=== PATIENT | female | born 1960 | race American Indian/Alaskan Native ===

== ENCOUNTER 2016-12-06 11:47 | Emergency (ER) | payer MEDICAID ==
[2016-12-06 12:00] VITALS: RESP 18
[2016-12-06] MEDS ORDERED: CYCLOBENZAPRINE 10 MG TAB PO ONE (12:15)
[2016-12-06] MEDS ORDERED: KETOROLAC 30 MG/1 ML SDV IM ONE (12:15)
--- NOTE | 2016-12-06 12:22 | EDPHY ---
H & P Time Seen by Provider: 12/06/16 11:51 HPI/ROS: HPI Rib pain, mechanical fall. 56-year-old female by private vehicle with her . She reports that last night at 2:30 a.m. she woke to go to the bathroom. She had walked down 16 stairs. As she was walking down the stairs her feet slipped out from underneath her. She landed on her right posterior lateral rib cage. Catching the edge of 1 of the steps to this area. She also reports that she hit the back of her head. She denies any loss of consciousness. She is not on any anticoagulation medication. She does have a history of recent back surgery as well as chronic pain and chronic use of narcotic pain medications. She has had no nausea or vomiting. No confusion. She complains of pain to the right posterior mid lateral aspect of her thorax and ribcage. She states the pain is worse with movement. No extremity pain. No loss of sensation or weakness in her extremities. Denies neck pain. Denies midline back pain. She reports she took 1 oxycodone right after the event, another 1 about an hour later to more at 6:30 a.m. and has had no significant relief in her pain. ROS: Constitutional: No fever, no chills. No weakness. Eyes: No discharge. No changes in vision. ENT: No sore throat. No nasal congestion or rhinorrhea. Respiratory: No cough. No shortness of breath. Cardiac: No chest pain, no palpitations. Gastrointestinal: No abdominal pain, no vomiting, no diarrhea. Genitourinary: No hematuria. No dysuria or increased frequency with urination. Musculoskeletal: As above. No neck pain. No myalgias or arthralgias. Skin: No rashes. Neurological: No headache. No focal weakness or altered sensation. Past medical history: Pancreatitis, , hepatitis-C, chronic back pain with opiate dependence, breast cancer. Social history: Smoker. Here with her . Physical Exam: General Appearance: Alert, laying in the left lateral decubitus position. She appears uncomfortable but not in distress.. This patient is responding to questions appropriately and in full sentences. This patient appears well- hydrated and well-nourished. Head: Normocephalic atraumatic except for some point tenderness on the occiput. No significant hematoma. No bony deformity, crepitus or step-off noted on palpation of this area. No scalp laceration or abrasion.. Face: Facial bones are stable on palpation. Eyes: Pupils equal and round and reactive to light, no pallor or injection. No lid erythema or edema. ENT, Mouth: Mucous membranes moist. Dentition is intact. No malocclusion of the jaw. No tongue lacerations or abrasions. Pharynx is clear. The bilateral nasal canals are clear. No septal hematoma. Respiratory: There are no retractions, lungs are clear to auscultation with good air movement bilaterally. Chest wall is stable to AP and lateral palpation. She has a faint area of ecchymosis/petechiae about the size of an adult hand palm, mid posterior lateral ribcage. She has tenderness on palpation over this area. No bony deformity, crepitus or step-off noted on palpation to the area. Cardiovascular: Regular rate and rhythm. No murmur. Gastrointestinal: Abdomen is soft and nontender, no masses, bowel sounds normal. Neurological: Motor sensory function is intact. Cranial nerves are normal. Cerebellar function intact. Skin: Warm and dry, no rashes. No lacerations, abrasions or contusions. Musculoskeletal: Neck is supple and nontender. The trachea is midline. No midline cervical, thoracic, lumbar or sacral tenderness on palpation. No flank tenderness on palpation. Extremities are symmetrical, full range of motion. All joints in the bilateral upper and bilateral lower extremities range without pain or impingement. No tenderness on palpation of the long bones in the bilateral upper and bilateral lower extremities. Psychiatric: No agitation. No depression. Database: EKG: Imaging: Right-sided rib series x-ray with PA chest: the cardiac mediastinal silhouette is unremarkable. No evidence of infiltrate or pneumothorax. No acute cardiopulmonary disease process noted. No evidence of rib fracture or other pathology. Interpreted by me. Procedures: Emergency department course: Vital signs reviewed and are normal. Medication allergies reviewed. She has no contraindications to NSAIDs. No problems with her kidneys. She was given 60 mg of IM Toradol. She was given 10 mg of oral Flexeril. She was sent for above imaging. 1:20 p.m., patient re-evaluated. Results of her urinalysis and x-ray discussed with her. Her pain is well controlled at this time after above medications. She feels comfortable going home with her and I feel she is safe for discharge. I discussed diagnosis of rib contusion. I feel that other significant traumatic injury unlikely. I will prescribe her Flexeril for 2-3 days for her associated muscle spasming. Follow-up was discussed with her. Return to emergency department precautions thoroughly reviewed. All of her questions were answered. She was discharged in good condition with her . Differential Diagnosis: The differential diagnosis on this patient includes but is not limited to right posterior ribcage contusion, rib fracture. Pneumothorax, aortic dissection, renal laceration, liver laceration, cervical spine injury, thoracic or lumbar spinal injury, other significant spinal injury unlikely. This represents a partial list of diagnoses considered. These considerations are based on history , physical exam, past history, reassessment and diagnostic testing. Smoking Status: Light smoker Constitutional: Initial Vital Signs Temperature (C) 36.9 C 12/06/16 11:58 Heart Rate 68 12/06/16 11:58 Respiratory Rate 18 12/06/16 11:58 Blood Pressure 112/76 12/06/16 11:58 O2 Sat (%) 95 12/06/16 11:58 O2 Delivery Mode Room Air Allergies/Adverse Reactions: divalproex sodium [From Depakote] Allergy (Verified 07/30/14 09:46) antidepressants Allergy (Unknown, Uncoded 07/30/14 09:46) Home Medications: Medication Instructions Recorded Carisoprodol [Soma (RX)] 350 mg PO TIDMEAL 10/19/12 Lidocaine 5% [Lidoderm 5% Patch 1 ea TD DAILY 10/19/12 (RX)] oxyCODONE/APAP 5/325 [Percocet 1 - 2 tab PO Q4-6PRN PRN #15 tab 05/03/14 5/325] Cyclobenzaprine [Flexeril 10 MG 10 mg PO TID #9 tab 12/06/16 (*)] Medical Decision Making - Data Points Laboratory Results: 12/06/16 12:20 Urine Color YELLOW Urine Appearance CLEAR Urine pH 7.0 (5.0-7.5) Ur Specific Swain 1.020 (1.002-1.030) Urine Protein NEGATIVE (NEGATIVE) Urine Ketones NEGATIVE (NEGATIVE) Urine Blood NEGATIVE (NEGATIVE) Urine Nitrate NEGATIVE (NEGATIVE) Urine Bilirubin NEGATIVE (NEGATIVE) Urine Urobilinogen 0.2 EU EU (0.2-1.0) Ur Leukocyte Esterase NEGATIVE (NEGATIVE) Urine Glucose NEGATIVE (NEGATIVE) Medications Given: Discontinued Medications Cyclobenzaprine HCl (Flexeril) 10 mg PO EDNOW ONE Stop: 12/06/16 12:16 Last Admin: 12/06/16 12:34 Dose: 10 mg Ketorolac Tromethamine (Toradol) 60 mg IM EDNOW ONE Stop: 12/06/16 12:16 Last Admin: 12/06/16 12:34 Dose: 60 mg Departure - Departure Disposition: Home, Routine, Self-Care Clinical Impression: Mechanical fall, Contusion of rib on right side Condition: Good Instructions: Rib Contusion (ED) Additional Instructions: Read and follow provided instructions. Follow-up with your primary care physician in 1-2 days for re-evaluation. Ibuprofen dosin mg every 6 hours with meals for the next 3 days only. Do not start taking this medication until tomorrow. Take only as needed for pain. Take Flexeril as prescribed only. This medication can make you drowsy. Do not drive while taking this medication. Return to the emergency department for worsening pain, cough, difficulty breathing, fever or other serious concerns. Referrals: ASTRID DOUGHERTY,. [Primary Care Provider] - As per Instructions Prescriptions: Cyclobenzaprine [Flexeril 10 MG (*)] 10 mg PO TID #9 tab
[2016-12-06 12:30] LABS: COLOR YELLOW; LEUKOCYTE ESTERASE,URINE NEGATIVE (NEGATIVE); NITRITE,URINE NEGATIVE (NEGATIVE)
[2016-12-06 13:37] VITALS: BP 112/75; PULSE 85; TEMP 98.6; O2SAT 97
== END 2016-12-06 13:35 | disposition home or self-care (01) ==
LOC: CED 11:47
DX: S20.211A Contusion of right front wall of thorax, initial encounter (principal); F17.200 Nicotine dependence, unspecified, uncomplicated; Z85.3 Personal history of malignant neoplasm of breast; W10.8XXA Fall (on) (from) other stairs and steps, initial encounter; Y99.8 Other external cause status; Y93.01 Activity, walking, marching and hiking
CPT/HCPCS: 71101-PO; 81003-PO; J1885

== ENCOUNTER 2017-07-26 10:06 | Emergency (ER) | payer MEDICAID ==
[2017-07-26 10:19] VITALS: TEMP 98
[2017-07-26] MEDS ORDERED: METOCLOPRAMIDE 10 MG/2 ML VIAL IVP ONE (10:42)
[2017-07-26] MEDS ORDERED: NS 1,000 ML IV ONE (10:42)
[2017-07-26] MEDS ORDERED: KETOROLAC 30 MG/1 ML SDV IVP ONE (10:42)
[2017-07-26] MEDS ORDERED: DEXAMETHASONE 10 MG/ML VIAL IVP ONE (10:42)
[2017-07-26] MEDS ORDERED: ONDANSETRON 4 MG/2 ML VIAL IVP ONE (10:42)
--- NOTE | 2017-07-26 10:49 | EDPHY ---
H & P Time Seen by Provider: 07/26/17 10:21 HPI/ROS: HPI Migraine headache. 56-year-old female by private vehicle with her . This patient reports a gradual onset headache which she describes as being behind her left eyebrow, starting yesterday at about 10:30 a.m. In the morning. She reports that it has gotten progressively worse since that time. She has a vague history of migraine headaches in the past. She reports that she has not had a migraine headache as severe as this 1. She denies a thunderclap headache. She has had some photophobia as well as some tearing from her left eye. No history of ocular trauma. No changes in vision other than the photophobia. She has had nausea but no vomiting. No neck pain. No loss of sensation or weakness in her extremities. ROS: Constitutional: No fever, no chills. No weakness. Eyes: No discharge. No changes in vision. ENT: No sore throat. No nasal congestion or rhinorrhea. Respiratory: No cough. No shortness of breath. Cardiac: No chest pain, no palpitations. Gastrointestinal: No abdominal pain, no vomiting, no diarrhea. As above. Genitourinary: No hematuria. No dysuria or increased frequency with urination. Musculoskeletal: No back pain. No neck pain. No myalgias or arthralgias. Skin: No rashes. Neurological: Significant for headache. No focal weakness or altered sensation. Past medical history: Pancreatitis, , hepatitis-C, breast cancer, chronic back pain. Social history: Nonsmoker, here with her . Denies alcohol. Physical Exam: General Appearance: Alert, she appears uncomfortable, she has a sweater over her face. This patient is responding to questions appropriately and in full sentences. This patient appears well-hydrated and well-nourished. Eyes: Pupils equal and round no pallor or injection. No lid edema, erythema or injection. Photophobia present. No nystagmus. ENT, Mouth: Mucous membranes are moist. The pharyngeal tissues are unremarkable. No edema or swelling. No asymmetry suggestive of abscess. No erythema or exudates. No tenderness on palpation of the bilateral temples. Facial symmetry is normal. Gastrointestinal: Abdomen is soft and nontender, no masses, bowel sounds normal. No focal tenderness at McBurney's point. No Shabazz sign. Neurological: Motor sensory function is grossly intact. Cranial nerves are normal. Gait is normal. Skin: Warm and dry, no rashes. Musculoskeletal: Neck is supple and nontender. No pain on flexion of her neck. Extremities are symmetrical. All joints range without pain or impingement. Psychiatric: No agitation. No depression. Database: EKG: Imaging: CT scan of head without contrast: Procedures: Emergency department course: Vital signs reviewed and are normal. Medication allergies reviewed. An IV was placed. She was started on IV normal saline with 1 L to be given over the next hour. She was initially given 4 mg of IV Zofran, 10 mg of IV Decadron, 30 mg of IV Toradol, 10 mg of IV Reglan and 25 mg of IV Benadryl. She has no contraindications to NSAIDs. No history of peptic ulcer disease or renal dysfunction. She consents to CT imaging of her head. 12:00 p.m., patient re-evaluated. Her headache has completely resolved and she is feeling much better. She is getting her clothes on and is requesting discharge at this time. She refused her CT scan. I discussed the risks of refusing this test. In my professional opinion she understands these risks. The patient competently engages in shared decision making. They demonstrate capacitance to make decisions. Repeat neurologic Assessment is nonfocal. She has no neck pain. Follow-up was discussed with her. Return to emergency department precautions reviewed. All of her questions were answered. She was discharged in good condition. Differential Diagnosis: The differential diagnosis on this patient includes but is not limited to migraine headache, cluster headache. Subarachnoid hemorrhage, meningitis, encephalitis, cavernous sinus thrombosis, sagittal sinus thrombosis, temporal arteritis unlikely. This represents a partial list of diagnoses considered. These considerations are based on history, physical exam, past history, reassessment and diagnostic testing. Smoking Status: Light smoker Constitutional: Initial Vital Signs Temperature (C) 36.6 C 07/26/17 10:17 Heart Rate 87 07/26/17 10:17 Respiratory Rate 20 07/26/17 10:17 Blood Pressure 133/75 H 07/26/17 10:17 O2 Sat (%) 97 07/26/17 10:17 O2 Delivery Mode Room Air Allergies/Adverse Reactions: divalproex sodium [From Depakote] Allergy (Verified 07/30/14 09:46) antidepressants Allergy (Unknown, Uncoded 07/30/14 09:46) Home Medications: Medication Instructions Recorded Carisoprodol [Soma (RX)] 350 mg PO TIDMEAL 10/19/12 Lidocaine 5% [Lidoderm 5% Patch 1 ea TD DAILY 10/19/12 (RX)] oxyCODONE/APAP 5/325 [Percocet 1 - 2 tab PO Q4-6PRN PRN #15 tab 05/03/14 5/325] Cyclobenzaprine [Flexeril 10 MG 10 mg PO TID #9 tab 12/06/16 (*)] Medical Decision Making - Data Points Medications Given: Discontinued Medications Dexamethasone (Decadron Injection) 10 mg IVP EDNOW ONE Stop: 07/26/17 10:43 Last Admin: 07/26/17 11:01 Dose: 10 mg Diphenhydramine HCl (Benadryl Injection) 25 mg IVP EDNOW ONE Stop: 07/26/17 10:43 Last Admin: 07/26/17 11:01 Dose: 25 mg Sodium Chloride (Ns) 1,000 mls @ 0 mls/hr IV ONCE ONE; Wide Open PRN Reason: Protocol Stop: 07/26/17 10:43 Last Admin: 07/26/17 11:04 Dose: 1,000 mls Ketorolac Tromethamine (Toradol) 30 mg IVP EDNOW ONE Stop: 07/26/17 10:43 Last Admin: 07/26/17 11:01 Dose: 30 mg Metoclopramide HCl (Reglan Injection) 10 mg IVP EDNOW ONE Stop: 07/26/17 10:43 Last Admin: 07/26/17 11:01 Dose: 10 mg Ondansetron HCl (Zofran) 4 mg IVP EDNOW ONE Stop: 07/26/17 10:43 Last Admin: 07/26/17 11:01 Dose: 4 mg Departure - Departure Disposition: Home, Routine, Self-Care Clinical Impression: Headache Condition: Good Instructions: Acute Headache (ED) Additional Instructions: Read and follow provided instructions. Follow-up with your primary care physician on Saturday for re-evaluation. Return to the emergency department for worsening headache, vomiting, confusion, neck pain, fever or other serious concerns. Referrals: John Brewer MD [Primary Care Provider] - As per Instructions
[2017-07-26 12:10] VITALS: BP 100/62; PULSE 78; RESP 18; O2SAT 95
== END 2017-07-26 12:09 | disposition home or self-care (01) ==
LOC: CED 10:06
DX: R51 Headache (principal); F17.200 Nicotine dependence, unspecified, uncomplicated; E86.9 Volume depletion, unspecified; Z85.3 Personal history of malignant neoplasm of breast
CPT/HCPCS: 96374; J1100; J1200; J1885; J2405; J2765

== ENCOUNTER → 2017-09-14 | Emergency (ER) | payer OTHER, MEDICAID ==
[~2017-09-14] MED LIST: KETOROLAC 30 MG/1 ML SDV IM ONE
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
[2017-09-14 08:29] VITALS: BP 119/66
== END | disposition home or self-care (01) ==
LOC: CED 06:33
DX: S39.92XA Unspecified injury of lower back, initial encounter (principal); S29.9XXA Unspecified injury of thorax, initial encounter; F17.200 Nicotine dependence, unspecified, uncomplicated; V43.52XA Car driver injured in collision with other type car in traffic accident, initial encounter; Y92.410 Unspecified street and highway as the place of occurrence of the external cause; Y99.8 Other external cause status; Y93.89 Activity, other specified
CPT/HCPCS: 81003-PO; 81015-PO; J1885

== ENCOUNTER 2018-04-22 07:59 | Emergency (ER) | payer MEDICAID ==
--- NOTE | 2018-04-22 08:23 | EDPHY ---
H & P Time Seen by Provider: 04/22/18 08:09 HPI/ROS: HPI Right shoulder pain. Fell down stairs. 57-year-old female by private vehicle with her . This patient reports that Saturday evening she was walking down the stairs to get something to eat when she tripped and fell down the stairs. She estimates she fell down 15-16 stairs. She presents to the emergency department this morning complaining of right shoulder pain. She describes this pain as on the top and lateral aspect of her right shoulder. She denies any loss of sensation or weakness distally. She reports that she did not lose consciousness and does not think she hit her head when she fell down the stairs. She has a history of chronic pain in her back and neck. She is not on anticoagulants or antiplatelet agents. ROS: Constitutional: No fever, no chills. No weakness. Eyes: No discharge. No changes in vision. ENT: No sore throat. No nasal congestion or rhinorrhea. Respiratory: No cough. No shortness of breath. Cardiac: No chest pain, no palpitations. Gastrointestinal: No abdominal pain, no vomiting, no diarrhea. Genitourinary: No hematuria. No dysuria or increased frequency with urination. Musculoskeletal: No acute back pain. No acute neck pain. As above. She denies other extremity pain. Skin: No rashes. Neurological: No headache. No focal weakness or altered sensation. Past medical history: Pancreatitis, , hepatitis-C, breast cancer, chronic back pain. Social history: Smoker. Denies alcohol. Here with her . Physical Exam: General Appearance: Alert, she appears uncomfortable but not in distress. This patient is responding to questions appropriately and in full sentences. This patient appears well-hydrated and well-nourished. Head: Normocephalic atraumatic. Face: Facial bones are stable on palpation. Eyes: Pupils equal and round and reactive to light, no pallor or injection. No lid erythema or edema. ENT, Mouth: Mucous membranes moist. Dentition is intact. No malocclusion of the jaw. No tongue lacerations or abrasions. Pharynx is clear. The bilateral nasal canals are clear. No septal hematoma. Respiratory: There are no retractions, lungs are clear to auscultation with good air movement bilaterally. Chest wall is stable to AP and lateral palpation. Cardiovascular: Regular rate and rhythm. No murmur. Gastrointestinal: Abdomen is soft and nontender, no masses, bowel sounds normal. Neurological: Motor sensory function is intact. Cranial nerves are normal. Cerebellar function intact. Skin: Warm and dry, no rashes. No lacerations, abrasions or contusions. Musculoskeletal: Neck is supple. The trachea is midline. She does have paraspinal cervical tenderness from C3 through C6 bilaterally. No midline cervical, thoracic, lumbar or sacral tenderness on palpation. No flank tenderness on palpation. Right shoulder and upper extremity exam: Significant for tenderness on palpation on the superior lateral aspect of the right shoulder. There is a faint area of ecchymosis over this area. The glenohumeral joint appears intact. There is a mild amount of pain on palpation of the proximal humerus. No bony deformity, step-off or ecchymosis/swelling noted to this area. The axillary nerve distribution is intact. The right upper extremity is neurovascularly intact. Extremities are symmetrical, full range of motion except noted. All joints in the bilateral upper and bilateral lower extremities range without pain or impingement except noted. No tenderness on palpation of the long bones in the bilateral upper and bilateral lower extremities except noted. Psychiatric: No agitation. No depression. Database: EKG: Imaging: CT cervical spine without contrast: Negative. Results discussed with staff radiologist Dr. Eddie Pro. CT head without contrast: Negative. Results discussed with staff radiologist Dr. Eddie Pro. Right shoulder x-ray series: Negative for fracture, subluxation, dislocation. The glenohumeral joint appears intact. The AC joint and clavicle are intact. No evidence of pneumothorax or rib fractures. Osteoporotic changes noted. Interpreted by me. I also discussed this x-ray with Dr. Eddie Pro. Procedures: Emergency department course: Triage vital signs reviewed. Medication allergies reviewed. She was placed in a cervical collar. She will be sent for CT imaging of her head and cervical spine as well as a right shoulder x-ray. She will be given 2 Gill tablets initially for pain control. She will be given intramuscular Toradol initially for pain control as needed after review of her CT head. 9:05 a.m., the patient was re-evaluated. Repeat neurologic Assessment is unremarkable. Results of her x-rays and CT scans discussed with her. Cervical collar cleared at this time. I discussed diagnosis of a right shoulder contusion with sprain. She was given intramuscular Toradol. She does not have contraindications to NSAIDs. She is asking me for prescription narcotic pain medication. She will be given a 2 day prescription for morphine IR. She will be driven home by her . She feels comfortable being discharged. I will have her follow up with her primary care physician in 1-2 days for re- evaluation. Return to emergency department precautions were discussed with her. All of her questions were answered. She was discharged from the emergency department in good condition with her . Differential Diagnosis: The differential diagnosis on this patient includes but is not limited to right shoulder contusion, cervical sprain. Traumatic brain injury, cervical spine fracture, clavicle fracture, other significant traumatic injury unlikely. This represents a partial list of diagnoses considered. These considerations are based on history, physical exam, past history, reassessment and diagnostic testing. Smoking Status: Current every day smoker Constitutional: Initial Vital Signs Temperature (C) 36.6 C 04/22/18 08:27 Heart Rate 78 04/22/18 08:27 Respiratory Rate 20 04/22/18 08:27 O2 Sat (%) 95 04/22/18 08:27 O2 Delivery Mode Room Air Allergies/Adverse Reactions: divalproex sodium [From Depakote] Allergy (Verified 04/22/18 08:14) antidepressants Allergy (Unknown, Uncoded 07/30/14 09:46) Home Medications: Medication Instructions Recorded Baclofen 04/22/18 morphINE IR [morphINE IR 15 mg (*)] 15 mg PO Q4-6PRN PRN #7 tab 04/22/18 Medical Decision Making - Data Points Medications Given: Discontinued Medications Hydrocodone Bitart/Acetaminophen (Gill 5/325) 2 tab PO EDNOW ONE Stop: 04/22/18 08:31 Last Admin: 04/22/18 08:45 Dose: 2 tab Ketorolac Tromethamine (Toradol) 60 mg IM EDNOW ONE Stop: 04/22/18 09:04 Last Admin: 04/22/18 09:08 Dose: 60 mg Departure - Departure Disposition: Home, Routine, Self-Care Clinical Impression: Right shoulder injury, Cervical strain Condition: Good Instructions: Cervical Strain (ED), Shoulder Sprain (ED) Additional Instructions: Read and follow provided instructions. Follow-up with your primary care physician in 1-2 days for re-evaluation. You can start taking ibuprofen tomorrow as needed. Ibuprofen dosin mg every 6 hours with meals for the next 3 days only. Take only as needed for pain. Take pain medication as prescribed only. Do not drive on this medication or drink alcohol with this medication. Return to the emergency department for worsening pain, worsening headache, vomiting, confusion, loss of sensation or weakness in your extremities or other serious concerns. Referrals: Unknown,Unknown [Primary Care Provider] - As per Instructions Prescriptions: morphINE IR [morphINE IR 15 mg (*)] 15 mg PO Q4-6PRN PRN #7 tab PRN Reason: Pain, Moderate
[2018-04-22] MEDS ORDERED: HYDROCODONE/APAP 5/325 TAB PO ONE (08:30)
[2018-04-22] MEDS ORDERED: KETOROLAC 30 MG/1 ML SDV IM ONE (09:03)
[2018-04-22 09:46] VITALS: BP 158/93
== END 2018-04-22 09:46 | disposition home or self-care (01) ==
LOC: CED 07:59
DX: S43.401A Unspecified sprain of right shoulder joint, initial encounter (principal); S16.1XXA Strain of muscle, fascia and tendon at neck level, initial encounter; W10.8XXA Fall (on) (from) other stairs and steps, initial encounter
CPT/HCPCS: 70450-PO; 72125-PO; 73030-PO; J1885